=== PATIENT | female | born 1940 | race Caucasian/White ===

== ENCOUNTER 2016-07-24 12:02 | Day surgery (SDC) | payer MEDICARE, OTHER ==
[2016-07-24] MEDS: Polymyxin B/Trimethoprim 10 ML Bottle EYERT SCH ×4 (13:48→15:21)
[2016-07-24] MEDS: Brimonidine 0.2% Ophth Soln 5 ML Bottle EYERT SCH ×3 (13:54→15:21)
--- NOTE | 2016-07-24 13:57 | PCM.PREANE ---
Preanesthetic Assessment - Anesthesia/Transfusion/Family Hx Anesthesia History: Prior Anesthesia Without Reaction Family History of Anesthesia Reaction: No Transfusion History: No Prior Transfusion(s) - Review of Systems General: No Symptoms Pulmonary: No Symptoms Cardiovascular: No Symptoms Gastrointestinal: No symptoms Neurological: No Symptoms Other: Reports: None - Physical Assessment NPO Status Date: 07/23/16 NPO Status Time: 21:00 Pulse: 66 O2 Sat by Pulse Oximetry: 100 Respiratory Rate: 16 Blood Pressure: 147/67 Temperature: 36.5 C Vital Signs: Last Vital Signs Temp 36.5 C 07/24/16 13:35 Pulse 66 07/24/16 13:35 Resp 16 07/24/16 13:35 BP 147/67 H 07/24/16 13:35 Pulse Ox 100 07/24/16 13:35 Height: 1.57 m Weight: 102.058 kg ASA Class: 2 Mental Status: Alert & Oriented x3 Dentition: Reports: [place](s) Thyro-Mental Finger Breadths: 3 Mouth Opening Finger Breadths: 3 ROM/Head Extension: Full Lungs: Clear to auscultation, Normal respiratory effort Cardiovascular: Regular Rate, Regular Rhythm, No Murmurs - Allergies Allergies/Adverse Reactions: Allergies Allergy/AdvReac Type Severity Reaction Status Date / Time CHAGO Inhibitors Allergy Unknown Cannot Verified 12/12/15 11:18 Remember amoxicillin Allergy Unknown rash/difficulty Verified 12/12/15 11:18 breathing clonidine Allergy Unknown Cannot Verified 12/12/15 11:18 Remember losartan [Losartan] Allergy Unknown Cannot Verified 12/12/15 11:18 Remember naproxen Allergy Unknown swollen Verified 12/12/15 11:18 and red meperidine HCl [From Demerol] AdvReac Disorientat Verified 12/12/15 11:18 ion - Blood Blood Available: No Product(s) Available: None - Anesthesia Plan Beta Morales: Metoprolol Med Last Dose Date: 07/23/16 Med Last Dose Time: 19:30 - Acknowledgements Anesthesia Type Planned: MAC Pt an Appropriate Candidate for the Planned Anesthesia: Yes Alternatives and Risks of Anesthesia Discussed w Pt/Guardian: Yes Pt/Guardian Understands and Agrees with Anesthesia Plan: Yes PreAnesthesia Questionnaire HEENT History: Reports: Cataract, Impaired Vision Other HEENT History: wears glasses Cardiovascular History: Reports: High Cholesterol, Hypertension Respiratory History: Reports: Other (See Below) Other Respiratory History: upper respiratory infection Gastrointestinal History: Reports: Chronic Constipation, Diverticulosis, Gastritis, GERD, Hemorrhoids, Other (See Below) Other Gastrointestinal History: diverticulitis, duodenitis, bowel impaction Genitourinary History: Reports: Renal Calculus, Other (See Below) Other Genitourinary History: kidney stones, left neprectomy 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: 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 Musculoskeletal History: Reports: Gout, Osteoarthritis Psychiatric History: Reports: Other (See Below) Other Psychiatric History: claustrophobia Endocrine/Metabolic History: Reports: Other (See Below) Other Endocrine/Metabolic History: thyroid cyst - Past Surgical History HEENT Surgical History: Reports: Adenoidectomy, Tonsillectomy, Other (See Below) Other HEENT Surgeries/Procedures: eye surgery GI Surgical History: Reports: Appendectomy, Colonoscopy, EGD, Polypectomy Female Surgical History: Reports: Nephrectomy, Other (See Below) Other Female Surgeries/Procedures: cystoscopy Musculoskeletal Surgical History: Reports: Arthroscopic Knee, Knee Replacement, Other (See Below) Other Musculoskeletal Surgeries/Procedures:: Left total knee, Left knee arthroscopy, foot surgery - SUBSTANCE USE Smoking Status *Q: Never Smoker Second Hand Smoke Exposure: No Days Per Week of Alcohol Use: 0 Number of Drinks Per Day: 0 Total Drinks Per Week: 0 Recreational Drug Use History: No - HOME MEDS Home Medications: Home Meds Allopurinol 1 tab PO QAM 05/14/14 [History] Famotidine [Pepcid AC] 1 tab PO DAILY PRN 05/14/14 [History] Gluc HCl/Csa/La Hy/Hyalur Ac [Glucosamine Chondroitin] 1 cap PO BID 05/14/14 [ History] Hydrochlorothiazide 1 tab PO QAM 05/14/14 [History] Metoprolol Succinate 1 tab PO QPM 05/14/14 [History] Simvastatin 1 tab PO QPM 05/14/14 [History] Acetaminophen [Tylenol Extra Strength] 1 - 2 tab PO Q6HR PRN 11/15/15 [History] Cranberry 400 mg PO DAILY 11/15/15 [History] Methylcellulose [Citrucel] 500 mg PO DAILY 11/15/15 [History] Calcium Carbonate [Tums] 500 mg PO ASDIRECTED PRN 12/12/15 [History] - CURRENT (IN HOUSE) MEDS Current Meds: Current Medications Brimonidine Tartrate (Alphagan 0.2% Ophth Soln) 0 ml EYERT ASDIRECTED ROBYN Stop: 07/24/16 18:00 Cefuroxime Sodium (Zinacef) 0 mg EYERT ASDIRECTED ROBYN Stop: 07/24/16 18:00 Lidocaine HCl (Xylocaine-Mpf 1%) 1 ml INJECT ASDIRECTED ROBYN Stop: 07/24/16 18:00 Phenylephrine HCl (Jose-Synephrine 2.5% Ophth Soln) 0 ml EYERT ASDIRECTED ROBYN Stop: 07/24/16 18:00 Pilocarpine HCl (Pilocar 4% Ophth Soln) 0 ml EYERT ASDIRECTED RBOYN Stop: 07/24/16 18:00 Polymyxin/Trimethoprim Sulfate (Polytrim Ophth Soln) 0 ml EYERT ASDIRECTED ROBYN Stop: 07/24/16 18:00 Last Admin: 07/24/16 13:48 Dose: 1 drop Tetracaine (Pontocaine 0.5% Oph Drops) 0 ml EYERT ASDIRECTED ROBYN Stop: 07/24/16 18:00 Tropicamide (Mydriacyl 1% Oph Soln) 0 ml EYERT ASDIRECTED ROBYN Stop: 07/24/16 18:00
[2016-07-24] MEDS: Phenylephrine 2.5% Ophth Soln 2 ML Bot EYERT SCH ×6 (14:00→15:01)
[2016-07-24] MEDS: Lidocaine 1% PF 2 ML SDV INJECT SCH ×2 (14:32→15:10)
[2016-07-24] MEDS: Tetracaine 0.5% 2 ML Bottle EYERT SCH ×3 (14:32→15:10)
[2016-07-24] MEDS: Pilocarpine 4% Ophth Soln 15 ML Bot EYERT SCH ×2 (14:33→15:21)
[2016-07-24] MEDS: Cefuroxime 10 MG/ML SYRINGE EYERT SCH ×2 (14:33→15:20)
--- NOTE | 2016-07-24 15:23 | PCM48HPAN ---
Post Anesthesia Note - EVALUATION WITHIN 48HRS OF ANESTHETIC Vital Signs in Normal Range: Yes Patient Participated in Evaluation: Yes Respiratory Function Stable: Yes Airway Patent: Yes Cardiovascular Function Stable: Yes Hydration Status Stable: Yes Pain Control Satisfactory: Yes Nausea and Vomiting Control Satisfactory: Yes Mental Status Recovered: Yes
[2016-07-24 15:34] VITALS: BP 153/59
== END 2016-07-24 15:31 | disposition home or self-care (01) ==
LOC: JD.SDS 12:02
PROVIDERS: ATTEND Ophthalmology
DX: H25.811 Combined forms of age-related cataract, right eye (principal); H35.371 Puckering of macula, right eye; H02.834 Dermatochalasis of left upper eyelid; H02.831 Dermatochalasis of right upper eyelid; M19.90 Unspecified osteoarthritis, unspecified site; E78.00 Pure hypercholesterolemia, unspecified; I10 Essential (primary) hypertension; K59.09 Other constipation; M10.9 Gout, unspecified; K21.9 Gastro-esophageal reflux disease without esophagitis; Z87.442 Personal history of urinary calculi; Z90.49 Acquired absence of other specified parts of digestive tract; Z98.890 Other specified postprocedural states; Z98.42 Cataract extraction status, left eye; Z96.1 Presence of intraocular lens; Z82.49 Family history of ischemic heart disease and other diseases of the circulatory system; Z79.899 Other long term (current) drug therapy; Z88.0 Allergy status to penicillin; Z88.8 Allergy status to other drugs, medicaments and biological substances; Z90.5 Acquired absence of kidney
CPT/HCPCS: 66984; A9270; C1780; J0697

== ENCOUNTER 2017-11-15 09:03 | Day surgery (SDC) | payer MEDICARE, OTHER ==
[~2017-11-15 09:03] MED LIST: Dexamethasone 4 MG/ML SDV ONE; Lactated Ringers 1,000 ML IV SCH; Lidocaine 1% 4 ML ONE; Lidocaine 1%/Sod Bicarbonate in NS 8.4% 1 ML Syringe IDERM PRN; Ondansetron 4 MG/2 ML SDV ONE; Propofol 200 MG/20 ML SDV ONE; Rocuronium 50 MG/5 ML Vial ONE; Sodium Chloride 0.9% 10 ML Syringe FLUSH PRN; fentaNYL 100 MCG/2 ML SDV ONE
--- NOTE | 2017-11-15 09:44 | PCM.PREANE ---
Preanesthetic Assessment - Anesthesia/Transfusion/Family Hx Anesthesia History: Prior Anesthesia Without Reaction Family History of Anesthesia Reaction: No Transfusion History: No Prior Transfusion(s) Intubation History: Unknown - Review of Systems General: No Symptoms Pulmonary: No Symptoms Cardiovascular: No Symptoms (History of HTN) Gastrointestinal: No Symptoms (GERD), Nausea Neurological: Numbness (constant numbnes bilateral feet) Other: Reports: None (History of right nephrectomy/elevated BUN and Creatinine noted), Thyroid Problems (History of multiple thyroid nodules) - Physical Assessment NPO Status Date: 11/14/17 NPO Status Time: 20:30 Pulse: 66 O2 Sat by Pulse Oximetry: 98 Respiratory Rate: 19 Blood Pressure: 142/63 Temperature: 37.1 C Height: 1.57 m Weight: 101 kg ASA Class: 3 Mental Status: Alert & Oriented x3 Airway Class: Mallampati = 2 Dentition: Reports: Normal Dentition, Caries Thyro-Mental Finger Breadths: 3 Mouth Opening Finger Breadths: 3 ROM/Head Extension: Full Lungs: Clear to Auscultation, Normal Respiratory Effort Cardiovascular: Regular Rate, Regular Rhythm, No Murmurs - Lab Values: Laboratory Last Values Urine Color Yellow (Yellow) 11/15/17 09:10 Urine Appearance Cloudy (Clear) H 11/15/17 09:10 Urine pH 5.5 (5.0-8.0) 11/15/17 09:10 Ur Specific [place] 1.025 (1.005-1.030) 11/15/17 09:10 Urine Protein Negative (Negative) 11/15/17 09:10 Urine Glucose (UA) Negative (Negative) 11/15/17 09:10 Urine Ketones Negative (Negative) 11/15/17 09:10 Urine Occult Blood Trace-lysed (Negative) H 11/15/17 09:10 Urine Nitrite Negative (Negative) 11/15/17 09:10 Urine Bilirubin Negative (Negative) 11/15/17 09:10 Urine Urobilinogen 0.2 (0.2-1.0) 11/15/17 09:10 Ur Leukocyte Esterase 1+ (Negative) H 11/15/17 09:10 All lab values reviewed and noted and within acceptable ranges to proceed with scheduled procedure. - Imaging/EKG Impressions: EKG: SR rate=66 Echocardiogram: (2013) EF= 60-65% - Allergies Allergies/Adverse Reactions: Allergies Allergy/AdvReac Type Severity Reaction Status Date / Time CHAGO Inhibitors Allergy Unknown Disorientat Verified 11/14/17 10:23 ion amoxicillin Allergy Unknown rash/difficulty Verified 11/14/17 10:23 breathing clonidine Allergy Unknown Cannot Verified 11/14/17 10:23 Remember losartan [Losartan] Allergy Unknown Cough Verified 11/14/17 10:23 naproxen Allergy Unknown swollen Verified 11/14/17 10:23 and red meperidine HCl [From Demerol] AdvReac Disorientat Verified 11/14/17 10:23 ion - Anesthesia Plan Pre-Op Medication Ordered: Beta Morales Beta Morales: Metoprolol Med Last Dose Date: 11/14/17 Med Last Dose Time: 19:00 - Acknowledgements Anesthesia Type Planned: General Anesthesia Pt an Appropriate Candidate for the Planned Anesthesia: Yes Alternatives and Risks of Anesthesia Discussed w Pt/Guardian: Yes Pt/Guardian Understands and Agrees with Anesthesia Plan: Yes PreAnesthesia Questionnaire HEENT History: Reports: Cataract, Impaired Vision Other HEENT History: wears glasses Cardiovascular History: Reports: High Cholesterol, Hypertension Respiratory History: Reports: Other (See Below) Other Respiratory History: upper respiratory infection Gastrointestinal History: Reports: Chronic Constipation, Colon Polyp, Diverticulosis, Gastritis, GERD, Hemorrhoids, Other (See Below) Other Gastrointestinal History: diverticulitis, duodenitis, bowel impaction Genitourinary History: Reports: Renal Calculus, Other (See Below) Other Genitourinary History: kidney stones, left neprectomy 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: 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, Other (See Below) Other OB/BYN History: pelvic pain, post menopausal bleeding Musculoskeletal History: Reports: Arthritis, Gout, Osteoarthritis Neurological History: Reports: Other (See Below) Other Neuro History: feet numbness Psychiatric History: Reports: Anxiety, Other (See Below) Other Psychiatric History: claustrophobia Endocrine/Metabolic History: Reports: Other (See Below) Other Endocrine/Metabolic History: thyroid cyst Hematologic History: Reports: None Immunologic History: Reports: None Oncologic (Cancer) History: Reports: None Dermatologic History: Reports: Other (See Below) Other Dermatologic History: foot callous - Past Surgical History Head Surgeries/Procedures: Reports: None HEENT Surgical History: Reports: Adenoidectomy, Cataract Surgery, Tonsillectomy , Other (See Below) Other HEENT Surgeries/Procedures: eye surgery Cardiovascular Surgical History: Reports: None Respiratory Surgical History: Reports: None GI Surgical History: Reports: Appendectomy, Colonoscopy, EGD, Polypectomy Female Surgical History: Reports: Nephrectomy, Other (See Below) Other Female Surgeries/Procedures: cystoscopy Musculoskeletal Surgical History: Reports: Arthroscopic Knee, Knee Replacement, Other (See Below) Other Musculoskeletal Surgeries/Procedures:: Left total knee, Left knee arthroscopy, foot surgery Oncologic Surgical History: Reports: None - SUBSTANCE USE Smoking Status *Q: Never Smoker Recreational Drug Use History: No - HOME MEDS Home Medications: Home Meds Allopurinol 50 mg PO QAM 05/14/14 [History] Simvastatin 20 mg PO QPM 05/14/14 [History] Famotidine [Pepcid AC] 10 mg PO DAILY PRN 11/14/17 [History] Metoprolol Succinate 100 mg PO QPM 11/14/17 [History] hydroCHLOROthiazide [Hydrochlorothiazide] 25 mg PO DAILY 11/14/17 [History] - CURRENT (IN HOUSE) MEDS Current Meds: Current Medications Lactated Ringer's (Ringers, Lactated) 1,000 mls @ 125 mls/hr IV ASDIRECTED ROBYN Stop: 11/15/17 23:00 Lidocaine/Sodium Bicarbonate (Buffered Lidocaine 1% In Ns 8.4%) 0.25 ml IDERM ONETIME PRN PRN Reason: Prior to IV Start Stop: 11/15/17 18:00 Sodium Chloride (Saline Flush) 10 ml FLUSH ASDIRECTED PRN PRN Reason: Keep Vein Open Stop: 11/15/17 18:00 Discontinued Medications Dexamethasone (Dexamethasone) Confirm Administered Dose 4 mg .ROUTE .STK-MED ONE Stop: 11/15/17 07:19 Fentanyl (Sublimaze) Confirm Administered Dose 100 mcg .ROUTE .STK-MED ONE Stop: 11/15/17 07:19 Lidocaine HCl (Xylocaine-Mpf 1%) Confirm Administered Dose 4 mls @ as directed .ROUTE .STK-MED ONE Stop: 11/15/17 07:19 Ondansetron HCl (Zofran) Confirm Administered Dose 4 mg .ROUTE .STK-MED ONE Stop: 11/15/17 07:19 Propofol (Diprivan 20 Ml) Confirm Administered Dose 200 mg .ROUTE .STK-MED ONE Stop: 09/07/18 07:19 Propofol (Diprivan 20 Ml) Confirm Administered Dose 200 mg .ROUTE .STK-MED ONE Stop: 11/15/17 08:36 Rocuronium [place] (Zemuron) Confirm Administered Dose 50 mg .ROUTE .STK-MED ONE Stop: 11/15/17 08:48
[2017-11-15] MEDS ORDERED: Succinylcholine/Normal Saline 100 MG/5 ML Syringe ONE (10:09)
[2017-11-15] MEDS ORDERED: Lactated Ringers 1,000 ML ONE (10:38)
[2017-11-15] MEDS ORDERED: diphenhydrAMINE 50 MG/ML SDV IVPUSH PRN (10:47)
[2017-11-15] MEDS ORDERED: Ondansetron 4 MG/2 ML SDV IVPUSH PRN (10:47)
[2017-11-15] MEDS ORDERED: HYDROmorphone 0.5 MG/0.5 ML Syringe IVPUSH PRN (10:47)
[2017-11-15] MEDS ORDERED: ePHEDrine 50 MG/ML SDV IVPUSH PRN (10:47)
[2017-11-15] MEDS ORDERED: Phenylephrine 1 MG in Sodium Chloride 0.9% 10 ML IV SCH (11:00)
--- NOTE | 2017-11-15 11:21 | PCM.POSTAN ---
POST ANESTHESIA ASSESSMENT - MENTAL STATUS Mental Status: Alert - VITAL SIGNS Pulse Rate: 73 SaO2: 94 Resp Rate: 15 Blood Pressure: 144/76 Temperature: 36.8 C - RESPIRATORY Respiratory Status: Respiratory Rate WNL, Airway Patent, O2 Saturation Stable, Supplemental Oxygen - CARDIOVASCULAR CV Status: Pulse Rate WNL, Blood Pressure Stable - GASTROINTESTINAL GI Status: No Symptoms - POST OP HYDRATION Hydration Status: Adequate & Stable
--- NOTE | 2017-11-15 11:38 | PCM.OPNOTE ---
- General Post-Op/Procedure Note Date of Surgery/Procedure: 11/15/17 Operative Procedure(s): Hysteroscopy with dilation and curettage and endometrial polypectomy Findings: Overall normal-appearing cervix with cystocele and rectocele and uterine prolapse noted, normal endometrial lining with broad-based endometrial polyp from the uterine fundus with base near the 4 to 5 o'clock position. Overall normal-appearing tubal ostia bilaterally. Pre Op Diagnosis: Postmenopausal bleeding and endometrial polyp Post-Op Diagnosis: Same Anesthesia Technique: General ET Tube Primary Surgeon: Miller Meadows Anesthesia Provider: Margarette Eckert Nurses Aide: Sarah Harmon (PA student) Reason Nurses Aide Was Necessary: Medical education Pathology: 1. Endometrial polyp 2. Endometrial curettings Fluid Replacement, Intraop: 700 Output, Urine Amount: 0 (Voided prior to procedure) EBL in mLs: 15 Complications: None Condition: Good Free Text/Narrative:: Procedure in Detail: Patient was seen in the preop area and counseled on risks, benefits and alternatives of the procedure and consents were reviewed prior to going back to the OR. She was taken back to OR #2 and given general anesthesia with endotracheal tube that was placed without difficulty. She was placed in dorsal lithotomy position using Yellofin stirrups. She was prepped and draped in a normal sterile fashion. A weighted speculum was placed in the vagina and the cervix was visualized. The anterior lip of the cervix was grasped with a single toothed tenaculum. The cervix was serially dilated to a 15 [place] Trejo dilator. A 5 mm hysteroscope was inserted into the uterine cavity and advanced to the uterine fundus. The ostia were noted to be present bilaterally. The uterine cavity was noted to have normal-appearing postmenopausal endometrial lining with a broad-based endometrial polyp from the uterine fundus. The hysteroscope was removed and a polyp forceps was used to remove the majority of the polyp. The hysteroscope was reinserted and the cavity was inspected and the majority of the polyp was removed. The endometrial polyp was sent for pathology. The hysteroscope was removed and a sharp curette was used to circumferentially curette the entirety of the uterine cavity where good cri was present in all directions. The curettings were sent for pathology. The procedure was complete at this time and the tenaculum was removed from the cervix and good hemostasis was obtained from the tenaculum sites with use of silver nitrate stick. All instruments were removed from the vagina. All needle and sponge counts were correct x 2. The patient was awoken and taken back to the recovery room in stable condition. The patient will be discharged home when she is ambulating, tolerating PO, pain is well controlled with PO medications and she is voiding normally. She will follow up with Dr. Meadows in the clinic within the next 2-3 weeks. She was given strict precautions to call the medical office or go to the Emergency Department if she is having severe vaginal bleeding of more than 1 pad per hour for three hours, uncontrollable pain, nausea, vomiting, or if she is having a fever greater than 100.4 F.
[2017-11-15 13:34] VITALS: BP 127/66
== END 2017-11-15 13:00 | disposition home or self-care (01) ==
LOC: JD.SDS 09:03
PROVIDERS: ATTEND Obstetrics & Gynecology
DX: N95.0 Postmenopausal bleeding (principal); N84.0 Polyp of corpus uteri; N81.4 Uterovaginal prolapse, unspecified; M19.90 Unspecified osteoarthritis, unspecified site; M10.9 Gout, unspecified; K21.9 Gastro-esophageal reflux disease without esophagitis; I10 Essential (primary) hypertension; E78.00 Pure hypercholesterolemia, unspecified; E78.5 Hyperlipidemia, unspecified; E04.2 Nontoxic multinodular goiter; F41.9 Anxiety disorder, unspecified; Z79.899 Other long term (current) drug therapy; Z88.1 Allergy status to other antibiotic agents; Z88.6 Allergy status to analgesic agent; Z88.8 Allergy status to other drugs, medicaments and biological substances
CPT/HCPCS: 58558; 81001; 87086; J0330; J1100; J2405; J2704; J3010; J7120; 00952; J2001

== ENCOUNTER 2018-12-08 14:09 | Emergency (ER) | payer MEDICARE, OTHER ==
[2018-12-08 14:55] VITALS: BP 138/64; PULSE 64
[2018-12-08] MEDS ORDERED: predniSONE 20 MG Tab PO ONE (15:16)
[2018-12-08] MEDS ORDERED: Acetaminophen/HYDROcodone 325-5 MG Tab PO ONE (15:16)
--- NOTE | 2018-12-08 16:20 | EDM.PDOC ---
ED HPI GENERAL MEDICAL PROBLEM - General Chief Complaint: Lower Extremity Injury/Pain Stated Complaint: LT LEG PAIN Time Seen by Provider: 12/08/18 15:02 Source of Information: Reports: Patient, RN Notes Reviewed - History of Present Illness INITIAL COMMENTS - FREE TEXT/NARRATIVE: 78-year-old female comes in with left lower leg pain. Dealing with this for about 8-10 days. She has had 3 chiropractor treatments and after the treatment today the pain seemed to be worse. She states the pain starts in her left buttock area and left low back and at times radiates completely down her foot. The pain is worse when sitting, standing or walking. Lying relatively flat she can find positions of comfort. She does have history of peripheral neuropathy so does have chronic numbness and loss of feeling bottom of her feet but no other numbness or tingling. No focal weakness. She is not diabetic. After the chiropractor treatment today going home in the car the pain became so severe they decided to come here to the ED. No recent fall or injury. Left Leg Pain Score (Numeric/FACES): 10 - Related Data Allergies Allergy/AdvReac Type Severity Reaction Status Date / Time CHAGO Inhibitors Allergy Unknown Disorientat Verified 12/08/18 14:55 ion amoxicillin Allergy Unknown rash/difficulty Verified 12/08/18 14:55 breathing clonidine Allergy Unknown Cannot Verified 12/08/18 14:55 Remember losartan [Losartan] Allergy Unknown Cough Verified 12/08/18 14:55 naproxen Allergy Unknown swollen Verified 12/08/18 14:55 and red meperidine HCl [From Demerol] AdvReac Disorientat Verified 12/08/18 14:55 ion Home Meds: Home Meds Allopurinol 50 mg PO QAM 05/14/14 [History] Simvastatin 20 mg PO QPM 05/14/14 [History] Famotidine [Pepcid AC] 10 mg PO DAILY PRN 11/14/17 [History] Metoprolol Succinate 100 mg PO QPM 11/14/17 [History] hydroCHLOROthiazide [Hydrochlorothiazide] 25 mg PO DAILY 11/14/17 [History] Acetaminophen [Tylenol] 325 - 650 mg PO Q6H PRN #60 tablet 11/15/17 [Rx] Acetaminophen/HYDROcodone [Byron 325-5 MG] 1 - 2 tab PO Q6H #8 tablet 11/15/17 [ Rx] Acetaminophen/HYDROcodone [Byron 325-5 MG] 1 tab PO Q6H PRN #14 tablet 12/08/18 [Rx] Past Medical History HEENT History: Reports: Cataract, Impaired Vision Other HEENT History: wears glasses Cardiovascular History: Reports: High Cholesterol, Hypertension Respiratory History: Reports: Other (See Below) Other Respiratory History: upper respiratory infection Gastrointestinal History: Reports: Chronic Constipation, Colon Polyp, Diverticulosis, Gastritis, GERD, Hemorrhoids, Other (See Below) Other Gastrointestinal History: diverticulitis, duodenitis, bowel impaction Genitourinary History: Reports: Renal Calculus, Other (See Below) Other Genitourinary History: kidney stones, left neprectomy 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: 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, Other (See Below) Other ASSISTANT PUBLIC DEFENDER History: pelvic pain, post menopausal bleeding Musculoskeletal History: Reports: Arthritis, Gout, Osteoarthritis Neurological History: Reports: Other (See Below) Other Neuro History: feet numbness Psychiatric History: Reports: Anxiety, Other (See Below) Other Psychiatric History: claustrophobia Endocrine/Metabolic History: Reports: Other (See Below) Other Endocrine/Metabolic History: thyroid cyst Hematologic History: Reports: None Immunologic History: Reports: None Oncologic (Cancer) History: Reports: None Dermatologic History: Reports: Other (See Below) Other Dermatologic History: foot callous - Past Surgical History Head Surgeries/Procedures: Reports: None HEENT Surgical History: Reports: Adenoidectomy, Cataract Surgery, Tonsillectomy , Other (See Below) Other HEENT Surgeries/Procedures: eye surgery Cardiovascular Surgical History: Reports: None Respiratory Surgical History: Reports: None GI Surgical History: Reports: Appendectomy, Colonoscopy, EGD, Polypectomy Female Surgical History: Reports: Nephrectomy, Other (See Below) Other Female Surgeries/Procedures: cystoscopy Musculoskeletal Surgical History: Reports: Arthroscopic Knee, Knee Replacement, Other (See Below) Other Musculoskeletal Surgeries/Procedures:: Left total knee, Left knee arthroscopy, foot surgery Oncologic Surgical History: Reports: None Social & Family History - Tobacco Use Smoking Status *Q: Never Smoker - Caffeine Use Caffeine Use: Reports: None Review of Systems - Review of Systems Review Of Systems: See Below Constitutional: Denies: Chills, Fever Mouth/Throat: Reports: No Symptoms Respiratory: Denies: Shortness of Breath Cardiovascular: Denies: Chest Pain GI/Abdominal: Denies: Abdominal Pain Musculoskeletal: Reports: Back Pain (L low back), Leg Pain. Denies: Neck Pain, Shoulder Pain Skin: Reports: No Symptoms. Denies: Rash Neurological: Reports: Numbness (plantar aspect both feet chronically). Denies : Dizziness, Headache, Trouble Speaking, Weakness ED EXAM, GENERAL - Physical Exam Exam: See Below General Appearance: Alert, Mild Distress Eye Exam: Bilateral Eye: PERRL Throat/Mouth: Normal Inspection Head: Atraumatic Neck: Supple, Full Range of Motion Respiratory/Chest: No Respiratory Distress, Lungs Clear, Normal Breath Sounds Cardiovascular: Regular Rate, Rhythm GI/Abdominal: Soft, Non-Tender Extremities: No: Pedal Edema, Joint Swelling, Leg Pain, Increased Warmth, Redness Neurological: Alert, Oriented, No Motor/Sensory Deficits, Other (Mild pain with st leg raising LLE) Skin Exam: Warm, Dry, Normal Color, No Rash Course - Vital Signs Last Recorded V/S: Last Vital Signs Temp 97.8 F 12/08/18 14:52 Pulse 64 12/08/18 14:52 Resp 16 12/08/18 14:52 BP 138/64 12/08/18 14:52 Pulse Ox 98 12/08/18 14:52 - Orders/Labs/Meds Meds: Medications Discontinued Medications Generic Name Dose Route Start Last Admin Trade Name Freq PRN Reason Stop Dose Admin Hydrocodone Bitart/Acetaminophen 1 tab 12/08/18 15:16 12/08/18 15:56 Byron 325-5 Mg PO 12/08/18 15:17 1 tab ONETIME ONE Administration Prednisone 40 mg 12/08/18 15:16 12/08/18 15:56 Prednisone PO 12/08/18 15:17 40 mg ONETIME ONE Administration - Re-Assessments/Exams Free Text/Narrative Re-Assessment/Exam: 12/10/18 20:04 sx strongly compatable with sciatica, have written an order for physical therapy , will do a short course of steroids, discharge instr. as documented. Departure - Departure Time of Disposition: 16:16 Disposition: Home, Self-Care 01 Condition: Fair Clinical Impression: Back pain with sciatica - Discharge Information Prescriptions: Acetaminophen/HYDROcodone [Byron 325-5 MG] 1 tab PO Q6H PRN #14 tablet PRN Reason: Pain Instructions: Sciatica Referrals: Mary Taylor SPOKE MAKER [Primary Care Provider] - Forms: ED Department Discharge Additional Instructions: Prednisone 40 mg every morning for the next 4 days, Tylenol 3-4 times daily for mild to moderate discomfort or hydrocodone if needed for more severe pain, also alternate ice and heat to the left low back as needed. Follow-up regular medical provider in about one week for recheck, physical therapy recommended for further evaluation and treatment until symptoms resolving as expected.
== END 2018-12-08 16:32 | disposition home or self-care (01) ==
LOC: JD.ED 14:09
DX: M54.42 Lumbago with sciatica, left side (principal); I10 Essential (primary) hypertension; E78.00 Pure hypercholesterolemia, unspecified; Z88.1 Allergy status to other antibiotic agents; Z88.8 Allergy status to other drugs, medicaments and biological substances; Z79.899 Other long term (current) drug therapy; Z98.890 Other specified postprocedural states; Z90.49 Acquired absence of other specified parts of digestive tract; Z90.5 Acquired absence of kidney
CPT/HCPCS: 99283; A9270

== ENCOUNTER 2018-12-11 13:19 | Emergency (ER) | payer MEDICARE, OTHER ==
[2018-12-11 13:35] VITALS: BP 140/51; PULSE 70
--- NOTE | 2018-12-11 13:41 | EDM.PDOC ---
ED HPI GENERAL MEDICAL PROBLEM - General Chief Complaint: Lower Extremity Injury/Pain Stated Complaint: LEFT LEG PAIN Time Seen by Provider: 12/11/18 13:36 Source of Information: Reports: Patient, RN Notes Reviewed History Limitations: Reports: No Limitations - History of Present Illness INITIAL COMMENTS - FREE TEXT/NARRATIVE: Patient is a 78-year-old female who presents to the ED for the evaluation of left lower leg pain. Patient notes she was recently evaluated in the ER, and treated for sciatica. She states that the back pain has gotten better however she still having some lingering left lower allen pain. She notes that the pain is present only when she is bearing weight on the extremity, and is much better when she is lying down. The patient notes she's had this pain present for about 1-2 weeks. She notes that she was going to the chiropractor further back pain, and has not been there since after the sciatica treatment with Dr. Almanza provided out of the ER. She notes that the pain is an 8 out of 10 at rest, and a 10 out of 10 with any sort of weightbearing. The patient denies the pain radiating into her toes, however she states that it does travel up the left lateral side of her leg. When asked to point where the pain is the patient points to the left medial lower allen just superior to the ankle joint. She notes that the pain is sharp stabbing in nature. The patient notes that she does have a history of neuropathy, she states this is not due to diabetes, she is not on any medications for this neuropathy and they are investigating this in [place]. She states that they're unsure as to what is causing her neuropathy. The patient noted that she has had a very small amount of swelling to the medial lower allen, but has been using ice and this seems to have resolved it. Left Lower Leg Pain Score (Numeric/FACES): 8 - Related Data Allergies Allergy/AdvReac Type Severity Reaction Status Date / Time CHAGO Inhibitors Allergy Unknown Disorientat Verified 12/11/18 13:35 ion amoxicillin Allergy Unknown rash/difficulty Verified 12/11/18 13:35 breathing clonidine Allergy Unknown Cannot Verified 12/11/18 13:35 Remember losartan [Losartan] Allergy Unknown Cough Verified 12/11/18 13:35 naproxen Allergy Unknown swollen Verified 12/11/18 13:35 and red meperidine HCl [From Demerol] AdvReac Disorientat Verified 12/11/18 13:35 ion Home Meds: Home Meds Allopurinol 50 mg PO QAM 05/14/14 [History] Simvastatin 20 mg PO QPM 05/14/14 [History] Famotidine [Pepcid AC] 10 mg PO DAILY PRN 11/14/17 [History] Metoprolol Succinate 100 mg PO QPM 11/14/17 [History] hydroCHLOROthiazide [Hydrochlorothiazide] 25 mg PO DAILY 11/14/17 [History] Acetaminophen [Tylenol] 325 - 650 mg PO Q6H PRN #60 tablet 11/15/17 [Rx] Acetaminophen/HYDROcodone [[place] 325-5 MG] 1 tab PO Q6H PRN #14 tablet 12/08/18 [Rx] Acetaminophen/oxyCODONE [Percocet 325-5 MG] 1 each PO Q6H PRN #12 tab 12/11/18 [ Rx] predniSONE [Prednisone] 0 mg PO DAILY 12/11/18 [History] Past Medical History HEENT History: Reports: Cataract, Impaired Vision Other HEENT History: wears glasses Cardiovascular History: Reports: High Cholesterol, Hypertension Respiratory History: Reports: Other (See Below) Other Respiratory History: upper respiratory infection Gastrointestinal History: Reports: Chronic Constipation, Colon Polyp, Diverticulosis, Gastritis, GERD, Hemorrhoids, Other (See Below) Other Gastrointestinal History: diverticulitis, duodenitis, bowel impaction Genitourinary History: Reports: Renal Calculus, Other (See Below) Other Genitourinary History: kidney stones, left neprectomy 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 TOOL MAKER 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: Reports: 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, Other (See Below) Other PRESS TOOL MAKER History: pelvic pain, post menopausal bleeding Musculoskeletal History: Reports: Arthritis, Gout, Osteoarthritis Neurological History: Reports: Other (See Below) Other Neuro History: feet numbness Psychiatric History: Reports: Anxiety, Other (See Below) Other Psychiatric History: claustrophobia Endocrine/Metabolic History: Reports: Other (See Below) Other Endocrine/Metabolic History: thyroid cyst Hematologic History: Reports: None Immunologic History: Reports: None Oncologic (Cancer) History: Reports: None Dermatologic History: Reports: Other (See Below) Other Dermatologic History: foot callous - Past Surgical History Head Surgeries/Procedures: Reports: None HEENT Surgical History: Reports: Adenoidectomy, Cataract Surgery, Tonsillectomy , Other (See Below) Other HEENT Surgeries/Procedures: eye surgery Cardiovascular Surgical History: Reports: None Respiratory Surgical History: Reports: None GI Surgical History: Reports: Appendectomy, Colonoscopy, EGD, Polypectomy Female Surgical History: Reports: Nephrectomy, Other (See Below) Other Female Surgeries/Procedures: cystoscopy Musculoskeletal Surgical History: Reports: Arthroscopic Knee, Knee Replacement, Other (See Below) Other Musculoskeletal Surgeries/Procedures:: Left total knee, Left knee arthroscopy, foot surgery Oncologic Surgical History: Reports: None Social & Family History - Tobacco Use Smoking Status *Q: Never Smoker - Caffeine Use Caffeine Use: Reports: Coffee - Recreational Drug Use Recreational Drug Use: No Review of Systems - Review of Systems Review Of Systems: See Below Constitutional: Reports: No Symptoms Eyes: Reports: No Symptoms Ears: Reports: No Symptoms Nose: Reports: No Symptoms Mouth/Throat: Reports: No Symptoms Respiratory: Denies: Shortness of Breath Cardiovascular: Denies: Chest Pain GI/Abdominal: Reports: No Symptoms Genitourinary: Reports: No Symptoms Musculoskeletal: Reports: Leg Pain (L lower allen) Skin: Denies: Bruising Neurological: Denies: Numbness, Tingling Psychiatric: Reports: No Symptoms ED EXAM, GENERAL - Physical Exam Exam: See Below Exam Limited By: No Limitations General Appearance: Alert, WD/WN, No Apparent Distress Respiratory/Chest: No Respiratory Distress, Lungs Clear, Normal Breath Sounds, No Accessory Muscle Use, Chest Non-Tender Cardiovascular: Normal Peripheral Pulses, Regular Rate, Rhythm, No Murmur Peripheral Pulses: 3+: Dorsalis Pedis (L), Dorsalis Pedis (R) Extremities: Normal Inspection, Normal Range of Motion, Non-Tender, No Pedal Edema, Normal Capillary Refill. No: Joint Swelling, Geoff's Sign, Leg Pain, Increased Warmth, Mottled, Pallor, Redness Neurological: Alert, Oriented, Normal Cognition, No Motor/Sensory Deficits Psychiatric: Normal Affect, Normal Mood Skin Exam: Warm, Dry, Intact, Normal Color, No Rash Course - Vital Signs Last Recorded V/S: Last Vital Signs Temp 97.6 F 12/11/18 13:31 Pulse 70 12/11/18 13:31 Resp 18 12/11/18 13:31 BP 140/51 L 12/11/18 13:31 Pulse Ox 99 12/11/18 13:31 - Orders/Labs/Meds Meds: Medications Discontinued Medications Generic Name Dose Route Start Last Admin Trade Name Noemi PRN Reason Stop Dose Admin Hydromorphone HCl 0.5 mg 12/11/18 15:04 12/11/18 15:15 Dilaudid IM 12/11/18 15:05 0.5 mg ONETIME ONE Administration - Re-Assessments/Exams Free Text/Narrative Re-Assessment/Exam: 12/11/18 14:04 Patient presents to the ED for evaluation of left lower allen pain. Quite unsure as to what the etiology of her pain might be, she states that is worsened when she posterior pressure on the leg, with weightbearing. I did offer the patient and x-ray, and she accepted this time, and was wondering about an ultrasound of the area to rule out a blood clot, due to the nonspecific nature of her pain, and it not being related to sciatica in nature, I did agree to do the ultrasound at today's visit to see if we can find a source of what might be causing her pain. It may just end up being peripheral neuropathy. 12/11/18 15:05 Patient's tib-fib x-ray is done, and appreciates no acute abnormality. Patient does have a knee prosthesis on the left knee. Ankle mortise also looks symmetric. The patient notified the nurse that she was in more pain, and was requesting something for pain, I did order 0.5 mg IM Dilaudid for this. 12/11/18 17:10 Patient's ultrasound is done, and does not demonstrate any sort of a DVT in the left lower extremity. There is an area that has an appearance of an a large tendon with inflammation, which would be consistent with tendinitis at this time. Which would explain why she is having pain in this area. Patient was most recently placed on prednisone on 12/08/[address] Almanza for sciatica. I will recommend that she take 400mg Ibuprofen q6h PRN for pain management for 5 days along with other general recommendations. Departure - Departure Time of Disposition: 17:26 Disposition: Home, Self-Care 01 Condition: Fair Clinical Impression: Tendinitis - Discharge Information *PRESCRIPTION DRUG MONITORING PROGRAM REVIEWED*: No *COPY OF PRESCRIPTION DRUG MONITORING REPORT IN PATIENT JARVIS: No Referrals: Mary Taylor NP [Primary Care Provider] - Forms: ED Department Discharge Additional Instructions: You have been evaluated in the ED for your left lower leg pain. Your x-ray demonstrated no acute fracture or bony ability. Your ultrasound of your left lower leg demonstrated that you have tendinitis present in the lower extremity. There was no DVT appreciated on the ultrasound exam. Please use ice/heat as tolerated to the affected area. Please try to elevate the affected area to relieve swelling. You may take Tylenol 500 mg or ibuprofen 400mg q6 hrs for pain relief. Please do so until you have a tolerable level of pain with activity. Do not exceed 4000mg Tylenol or 2400mg ibuprofen in a 24 hour time period. Please try only to use ibuprofen for 5 days, as tendinitis is in inflammatory change, and the ibuprofen would likely provide to the best benefit from pain relief. You were given some tablets of oxycodone/acetaminophen for pain not relieved by ibuprofen alone. Recommend that you take the previous tablets of hydrocodone received by Dr. Almanza back to the pharmacy and have them destroyed if they're not providing good pain relief. Please return to ED if your symptoms should change or worsen.
--- NOTE | 2018-12-11 14:52 | CR ---
Left tibia and fibula: Two views of the left tibia and fibula were obtained. Comparison: No previous tibia or fibula exam, previous knee exam of 06/22/13 is available. Knee prosthesis is seen. Ankle mortise is symmetric. No fracture or other bony abnormality is appreciated. Impression: 1. Knee prosthesis. No additional abnormality is appreciated on left tibia and fibula study. Diagnostic code #1
[2018-12-11] MEDS ORDERED: HYDROmorphone 0.5 MG/0.5 ML Syringe IM ONE (15:04)
--- NOTE | 2018-12-11 16:57 | US ---
Left lower extremity deep venous ultrasound: Duplex and color flow imaging was obtained of the left common femoral, superficial femoral, popliteal, posterior tibial and peroneal veins. Right common femoral vein is also evaluated. Findings: Normal phasic flow, augmentation and compression is seen. There is a linear hypoechoic area containing echogenic striations within the anterior lower extremity superior to the ankle. This has the appearance of an enlarged tendon with inflammation. Impression: 1. Possible inflamed tendon as noted above. Please correlate if this matches patient's clinical symptoms. 2. No evidence of deep venous thrombosis within left lower extremity right common femoral vein. Diagnostic code #3
== END 2018-12-11 18:00 | disposition home or self-care (01) ==
LOC: JD.ED 13:19
DX: M77.9 Enthesopathy, unspecified (principal); H26.9 Unspecified cataract; E78.00 Pure hypercholesterolemia, unspecified; I10 Essential (primary) hypertension; K21.9 Gastro-esophageal reflux disease without esophagitis; M10.9 Gout, unspecified; Z88.8 Allergy status to other drugs, medicaments and biological substances; Z88.0 Allergy status to penicillin; Z88.6 Allergy status to analgesic agent; Z88.5 Allergy status to narcotic agent; Z79.899 Other long term (current) drug therapy; Z96.652 Presence of left artificial knee joint
CPT/HCPCS: 73590; 93971; 96372; 99284; J1170; 99283

== ENCOUNTER 2020-06-01 13:36 | Emergency (ER) | payer MEDICARE, OTHER ==
--- NOTE | 2020-06-01 14:01 | EDM.PDOC ---
ED HPI GENERAL MEDICAL PROBLEM - General Chief Complaint: Chest Pain Stated Complaint: CHEST PAIN Time Seen by Provider: 06/01/20 13:45 Source of Information: Reports: Patient History Limitations: Reports: No Limitations - History of Present Illness INITIAL COMMENTS - FREE TEXT/NARRATIVE: The patient presents with chest pain. 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 She also had some chest pain with it. This only lasted about a minute. She feels fine now. She had no headache, fever, chills, cough, chest pain, shortness of breath, abdominal pain, nausea or vomiting. She has no history of heart disease. She does not smoke. She has a history of hypertension and hypercholesterolemia. Onset: Sudden Duration: Hour(s): Location: Reports: Chest Quality: Reports: Sharp Severity: Mild Improves with: Reports: None Worsens with: Reports: None Associated Symptoms: Reports: Chest Pain. Denies: Cough, Fever/Chills, Headaches, Nausea/Vomiting, Shortness of Breath - Related Data Allergies Allergy/AdvReac Type Severity Reaction Status Date / Time amoxicillin Allergy Unknown rash/difficulty Verified 06/01/20 13:57 breathing clonidine Allergy Unknown Cannot Verified 06/01/20 13:57 Remember naproxen Allergy Unknown swollen Verified 06/01/20 13:57 and red CHAGO Inhibitors AdvReac Unknown Disorientat Verified 06/01/20 14:20 ion losartan [Losartan] AdvReac Unknown Cough Verified 06/01/20 14:20 meperidine HCl [From Demerol] AdvReac Disorientat Verified 06/01/20 13:57 ion Home Meds: Home Meds Simvastatin 20 mg PO QPM 05/14/14 [History] allopurinoL [Allopurinol] 50 mg PO QAM 05/14/14 [History] Famotidine [Pepcid AC] 10 mg PO DAILY PRN 11/14/17 [History] Metoprolol Succinate 100 mg PO QPM 11/14/17 [History] hydroCHLOROthiazide [Hydrochlorothiazide] 25 mg PO DAILY 11/14/17 [History] Acetaminophen [Tylenol] 325 - 650 mg PO Q6H PRN #60 tablet 11/15/17 [Rx] Past Medical History HEENT History: Reports: Cataract, Impaired Vision Other HEENT History: wears glasses Cardiovascular History: Reports: High Cholesterol, Hypertension Respiratory History: Reports: Other (See Below) Other Respiratory History: upper respiratory infection Gastrointestinal History: Reports: Chronic Constipation, Colon Polyp, Diverticu losis, Gastritis, GERD, Hemorrhoids, Other (See Below) Other Gastrointestinal History: diverticulitis, duodenitis, bowel impaction Genitourinary History: Reports: Renal Calculus, Other (See Below) Other Genitourinary History: kidney stones, left neprectomy 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: Reports: 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, Other (See Below) Other 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: pelvic pain, post menopausal bleeding Musculoskeletal History: Reports: Arthritis, Gout, Osteoarthritis Neurological History: Reports: Other (See Below) Other Neuro History: feet numbness Psychiatric History: Reports: Anxiety, Other (See Below) Other Psychiatric History: claustrophobia Endocrine/Metabolic History: Reports: Other (See Below) Other Endocrine/Metabolic History: thyroid cyst Hematologic History: Reports: None Immunologic History: Reports: None Oncologic (Cancer) History: Reports: None Dermatologic History: Reports: Other (See Below) Other Dermatologic History: foot callous - Past Surgical History Head Surgeries/Procedures: Reports: None HEENT Surgical History: Reports: Adenoidectomy, Cataract Surgery, Tonsillectomy, Other (See Below) Other HEENT Surgeries/Procedures: eye surgery Cardiovascular Surgical History: Reports: None Respiratory Surgical History: Reports: None GI Surgical History: Reports: Appendectomy, Colonoscopy, EGD, Polypectomy Female Surgical History: Reports: Nephrectomy, Other (See Below) Other Female Surgeries/Procedures: cystoscopy Musculoskeletal Surgical History: Reports: Arthroscopic Knee, Knee Replacement, Other (See Below) Other Musculoskeletal Surgeries/Procedures:: Left total knee, Left knee arthroscopy, foot surgery Oncologic Surgical History: Reports: None Social & Family History - Caffeine Use Caffeine Use: Reports: Coffee ED ROS GENERAL - Review of Systems Review Of Systems: See Below Constitutional: Reports: No Symptoms HEENT: Reports: No Symptoms Respiratory: Reports: No Symptoms Cardiovascular: Reports: Chest Pain Endocrine: Reports: No Symptoms GI/Abdominal: Reports: No Symptoms : Reports: No Symptoms Musculoskeletal: Reports: No Symptoms Skin: Reports: No Symptoms ED EXAM, GENERAL - Physical Exam Exam: See Below Exam Limited By: No Limitations General Appearance: Alert, No Apparent Distress Ears: Normal External Exam Nose: Normal Inspection Head: Atraumatic, Normocephalic Neck: Normal Inspection Respiratory/Chest: No Respiratory Distress, Lungs Clear, Normal Breath Sounds Cardiovascular: Regular Rate, Rhythm, No Edema, No Murmur GI/Abdominal: Soft, Non-Tender, No Organomegaly, No Mass Back Exam: Normal Inspection Extremities: Normal Inspection Course - Vital Signs Last Recorded V/S: Last Vital Signs Temp 97.0 F 06/01/20 13:44 Pulse 61 06/01/20 13:44 Resp 22 H 06/01/20 13:44 BP 162/72 H 06/01/20 13:44 Pulse Ox 97 06/01/20 13:44 - Orders/Labs/Meds Orders: Active Orders 24 hr Category Date Time Status Cardiac Monitoring [RC] . DIRECTED Care 06/01/20 14:00 Active EKG 12 Lead [EKG Documentation Completion] [RC] STAT Care 06/01/20 13:55 Active Peripheral IV Care [RC] . DIRECTED Care 06/01/20 14:00 Active Sodium Chloride 0.9% [Saline Flush] Med 06/01/20 13:59 Active 10 ml FLUSH ASDIRECTED PRN Peripheral IV Insertion Adult [OM.PC] Stat Oth 06/01/20 13:59 Ordered Medication Orders Sodium Chloride (Sodium Chloride 0.9% 10 Ml Syringe) 10 ml FLUSH ASDIRECTED PRN PRN Reason: Keep Vein Open Last Admin: 06/01/20 15:24 Dose: 10 ml Documented by: CHRIS Labs: Laboratory Tests 06/01/20 06/01/20 Range/Units 13:45 13:45 WBC 10.15 H (3.98-10.04) K/mm3 RBC 4.62 (3.98-5.22) M/mm3 Hgb 13.4 (11.2-15.7) gm/dl Hct 43.2 (34.1-44.9) % MCV 93.5 (79.4-94.8) fl MCH 29.0 (25.6-32.2) pg MCHC 31.0 L (32.2-35.5) g/dl RDW Std Deviation 43.5 (36.4-46.3) fL Plt Count 300 (182-369) K/mm3 MPV 11.8 (9.4-12.3) fl Neut % (Auto) 57.8 (34.0-71.1) % Lymph % (Auto) 29.2 (19.3-51.7) % Grady % (Auto) 10.3 (4.7-12.5) % Eos % (Auto) 2.0 (0.7-5.8) Baso % (Auto) 0.3 (0.1-1.2) % Neut # (Auto) 5.87 (1.56-6.13) K/mm3 Lymph # (Auto) 2.96 (1.18-3.74) K/mm3 Grady # (Auto) 1.05 H (0.24-0.36) K/mm3 Eos # (Auto) 0.20 (0.04-0.36) K/mm3 Baso # (Auto) 0.03 (0.01-0.08) K/mm3 Sodium 141 (136-145) mEq/L Potassium 4.4 (3.5-5.1) mEq/L Chloride 102 (98-107) mEq/L Carbon Dioxide 29 (21-32) mEq/L Anion Gap 14.4 (5-15) BUN 27 H (7-18) mg/dL Creatinine 1.3 H (0.55-1.02) mg/dL Est Cr Clr Drug Dosing 26.91 mL/min Estimated GFR (MDRD) 40 (>60) mL/min BUN/Creatinine Ratio 20.8 H (14-18) Glucose 91 (83-115) mg/dL Calcium 9.5 (8.5-10.1) mg/dL Total Bilirubin 0.7 (0.2-1.0) mg/dL AST 23 (15-37) U/L ALT 20 (14-59) U/L Alkaline Phosphatase 125 H (46-116) U/L Troponin I < 0.017 (0.00-0.056) ng/mL Total Protein 8.1 (6.4-8.2) g/dl Albumin 3.9 (3.4-5.0) g/dl Globulin 4.2 gm/dL Albumin/Globulin Ratio 0.9 L (1-2) Meds: Medications Generic Name Dose Route Start Last Admin Trade Name Freq PRN Reason Stop Dose Admin Sodium Chloride 10 ml 06/01/20 13:59 06/01/20 15:24 Sodium Chloride 0.9% 10 Ml Syringe FLUSH 10 ml ASDIRECTED PRN Administration Keep Vein Open Discontinued Medications Generic Name Dose Route Start Last Admin Trade Name Noemi PRN Reason Stop Dose Admin Aspirin 324 mg 06/01/20 13:59 06/01/20 14:31 Aspirin 81 Mg Tab.Chew PO 06/01/20 14:00 Not Given ONETIME ONE - Re-Assessments/Exams Free Text/Narrative Re-Assessment/Exam: 06/01/20 15:18 I ordered an IV saline lock, EKG, CXR, and labs. She had some aspirin before arrival. 06/01/20 15:31 Her EKG shows a NSR with no acute changes. Her CXR looks good. Her WBC was slightly elevated at 10.15. Her creatinine was slightly elevated at 1.3. Her alk phos was elevated at 125. Her troponin is negative. She still feels good. I do not feel this is a heart attack. I will discharge her home and follow up with Mary Taylor. Departure - Departure Time of Disposition: 15:35 Disposition: Home, Self-Care 01 Condition: Good Clinical Impression: Atypical chest pain Referrals: Mary Taylor, PROJECT CONSULTANT [Primary Care Provider] - 1 Week Forms: ED Department Discharge Additional Instructions: Take your medications as prescribed. Follow up with Mary Taylor within a week. Please return if you are worse. Sepsis Event Note (ED) - Evaluation Sepsis Screening Result: No Definite Risk - Focused Exam Vital Signs: Vital Signs Temp Pulse Resp BP Pulse Ox 06/01/20 13:44 97.0 F 61 22 H 162/72 H 97 - My Orders Last 24 Hours: My Active Orders 06/01/20 13:55 EKG 12 Lead [EKG Documentation Completion] [RC] STAT 06/01/20 13:59 Sodium Chloride 0.9% [Saline Flush] 10 ml FLUSH ASDIRECTED PRN Peripheral IV Insertion Adult [OM.PC] Stat 06/01/20 14:00 Cardiac Monitoring [RC] . DIRECTED Peripheral IV Care [RC] . DIRECTED - Assessment/Plan Last 24 Hours: My Active Orders 06/01/20 13:55 EKG 12 Lead [EKG Documentation Completion] [RC] STAT 06/01/20 13:59 Sodium Chloride 0.9% [Saline Flush] 10 ml FLUSH ASDIRECTED PRN Peripheral IV Insertion Adult [OM.PC] Stat 06/01/20 14:00 Cardiac Monitoring [RC] . DIRECTED Peripheral IV Care [RC] . DIRECTED
--- NOTE | 2020-06-01 14:26 | CR ---
Chest: Portable view of the chest was obtained. Comparison: No prior chest imaging is available. Heart size and mediastinum are within normal limits for portable technique. Lungs are clear with no acute parenchymal change. No acute osseous abnormality is appreciated. Impression: 1. Nothing acute is seen on portable chest x-ray. Diagnostic code #1
[2020-06-01] MEDS: Aspirin 81 MG Tab.Chew PO ONE (14:31)
[2020-06-01] MEDS: Sodium Chloride 0.9% 10 ML Syringe FLUSH PRN (15:24)
[2020-06-01 15:59] VITALS: BP 141/49; PULSE 55
== END 2020-06-01 15:45 | disposition home or self-care (01) ==
LOC: JD.ED 13:36
DX: R07.89 Other chest pain (principal); D72.829 Elevated white blood cell count, unspecified; E78.00 Pure hypercholesterolemia, unspecified; I10 Essential (primary) hypertension; K21.9 Gastro-esophageal reflux disease without esophagitis; Z88.0 Allergy status to penicillin; Z88.8 Allergy status to other drugs, medicaments and biological substances; Z88.6 Allergy status to analgesic agent; Z79.899 Other long term (current) drug therapy
CPT/HCPCS: 36415; 71045; 71045-26; 80053; 84484; 85025; 93005; 99284; 99285-25

== ENCOUNTER 2020-07-19 07:35 | Day surgery (SDC) | payer MEDICARE, OTHER ==
[~2020-07-19 07:35] MED LIST changes: -Dexamethasone 4 MG/ML SDV ONE; -Lidocaine 1% 4 ML ONE; -Ondansetron 4 MG/2 ML SDV ONE; -Propofol 200 MG/20 ML SDV ONE; -Rocuronium 50 MG/5 ML Vial ONE; -fentaNYL 100 MCG/2 ML SDV ONE
[2020-07-19] MEDS ORDERED: fentaNYL 100 MCG/2 ML SDV ONE (08:15)
[2020-07-19] MEDS ORDERED: Propofol 200 MG/20 ML SDV ONE (08:15)
[2020-07-19] MEDS ORDERED: Lidocaine 1% 4 ML ONE (08:15)
[2020-07-19] MEDS ORDERED: Midazolam 1 MG/ML 2 ML SDV ONE (08:15)
--- NOTE | 2020-07-19 08:16 | PCM.PREANE ---
Preanesthetic Assessment - Procedure Proposed Procedure: Diagnostic EGD Diagnostic Colonoscopy - Anesthesia/Transfusion/Family Hx Anesthesia History: Prior Anesthesia Without Reaction Family History of Anesthesia Reaction: No Transfusion History: No Prior Transfusion(s) Intubation History: Unknown - Review of Systems General: No Symptoms Pulmonary: No Symptoms Cardiovascular: No Symptoms Gastrointestinal: Other (GERD) Neurological: Numbness (Bilateral Feet), Tingling (Bilateral Feet) Other: Reports: None - Physical Assessment NPO Status Date: 07/19/20 NPO Status Time: 04:00 Weight: 91.9 kg ASA Class: 3 Mental Status: Alert & Oriented x3 Airway Class: Mallampati = 2 Dentition: Reports: Normal Dentition (Bottom two teeth loose. Can wiggle with her finger. Explained bite block and risk to these teeth.) Thyro-Mental Finger Breadths: 2 Mouth Opening Finger Breadths: 3 ROM/Head Extension: Full Lungs: Clear to Auscultation, Normal Respiratory Effort Cardiovascular: Regular Rate, Regular Rhythm - Imaging/EKG Impressions: SR at 64 bpm - Allergies Allergies/Adverse Reactions: Allergies Allergy/AdvReac Type Severity Reaction Status Date / Time amoxicillin Allergy Unknown rash/difficulty Verified 07/18/20 12:31 breathing clonidine Allergy Unknown Cannot Verified 07/18/20 12:31 Remember naproxen Allergy Unknown swollen Verified 07/18/20 12:31 and red CHAGO Inhibitors AdvReac Unknown Disorientat Verified 07/18/20 12:31 ion losartan [Losartan] AdvReac Unknown Cough Verified 07/18/20 12:31 meperidine HCl [From Demerol] AdvReac Disorientat Verified 07/18/20 12:31 ion - Blood Blood Available: No - Anesthesia Plan Pre-Op Medication Ordered: None Beta Morales: Metoprolol Med Last Dose Date: 07/18/20 Med Last Dose Time: 20:00 - Acknowledgements Anesthesia Type Planned: MAC Pt an Appropriate Candidate for the Planned Anesthesia: Yes Alternatives and Risks of Anesthesia Discussed w Pt/Guardian: Yes Pt/Guardian Understands and Agrees with Anesthesia Plan: Yes PreAnesthesia Questionnaire HEENT History: Reports: Cataract, Impaired Vision Other HEENT History: wears glasses Cardiovascular History: Reports: High Cholesterol, Hypertension Respiratory History: Reports: Other (See Below) Other Respiratory History: upper respiratory infection Gastrointestinal History: Reports: Chronic Constipation, Colon Polyp, Diverticulosis, Gastritis, GERD, Hemorrhoids, Other (See Below) Other Gastrointestinal History: diverticulitis, duodenitis, bowel impaction Genitourinary History: Reports: Renal Calculus, Other (See Below) Other Genitourinary History: kidney stones, left neprectomy 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: Reports: 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, Other (See Below) Other OB/BYN History: pelvic pain, post menopausal bleeding Musculoskeletal History: Reports: Arthritis, Gout, Osteoarthritis, Other (See Below) Other Musculoskeletal History: Herniated disc - sciatica pain Neurological History: Reports: Other (See Below) Other Neuro History: feet numbness Psychiatric History: Reports: Anxiety, Other (See Below) Other Psychiatric History: claustrophobia Endocrine/Metabolic History: Reports: Hypothyroidism, Other (See Below) Other Endocrine/Metabolic History: thyroid cyst Hematologic History: Reports: None Immunologic History: Reports: None Oncologic (Cancer) History: Reports: None Dermatologic History: Reports: Other (See Below) Other Dermatologic History: foot callous - Infectious Disease History Infectious Disease History: Reports: None - Past Surgical History Head Surgeries/Procedures: Reports: None HEENT Surgical History: Reports: Adenoidectomy, Cataract Surgery, Tonsillectomy, Other (See Below) Other HEENT Surgeries/Procedures: eye surgery Cardiovascular Surgical History: Reports: None Respiratory Surgical History: Reports: None GI Surgical History: Reports: Appendectomy, Colonoscopy, EGD, Polypectomy Female Surgical History: Reports: Nephrectomy, Other (See Below) Other Female Surgeries/Procedures: cystoscopy Endocrine Surgical History: Reports: None Neurological Surgical History: Reports: None Musculoskeletal Surgical History: Reports: Arthroscopic Knee, Knee Replacement, Other (See Below) Other Musculoskeletal Surgeries/Procedures:: Left total knee, Left knee arthroscopy, foot surgery Oncologic Surgical History: Reports: None - SUBSTANCE USE Tobacco Use Status *Q: Never Tobacco User Recreational Drug Use History: No - HOME MEDS Home Medications: Home Meds Simvastatin 20 mg PO QPM 05/14/14 [History] allopurinoL [Allopurinol] 100 mg PO QAM 05/14/14 [History] Famotidine [Pepcid AC] 10 mg PO DAILY PRN 11/14/17 [History] Metoprolol Succinate 100 mg PO DAILY 11/14/17 [History] hydroCHLOROthiazide [Hydrochlorothiazide] 25 mg PO DAILY 11/14/17 [History] Escitalopram Oxalate [Lexapro] 10 mg PO DAILY 07/18/20 [History] - CURRENT (IN HOUSE) MEDS Current Meds: Current Medications Lactated Ringer's (Ringers, Lactated) 1,000 mls @ 125 mls/hr IV ASDIRECTED ROBYN Stop: 07/19/20 23:00 Lidocaine/Sodium Bicarbonate (Lidocaine 1%/Sod Bicarbonate In Ns 8.4% 1 Ml Syringe) 0.25 ml IDERM ONETIME PRN PRN Reason: Prior to IV Start Stop: 07/19/20 18:00 Sodium Chloride (Sodium Chloride 0.9% 10 Ml Syringe) 10 ml FLUSH ASDIRECTED PRN PRN Reason: Keep Vein Open Stop: 07/19/20 18:00
--- NOTE | 2020-07-19 09:11 | PCM.PRNOTE ---
- Free Text/Narrative Note: Date: 07/19/2020 Procedure: diagnostic upper endoscopy, screening colonoscopy History: medically refractory reflux, history of colon polyps with last scope done three years ago Endoscopist: Baldev Hodge MD Findings: very good prep. Appendiceal orifice seen, with polypoid tissue at the orifice. Diverticulosis with what seemed like minor stricture related to diverticulitis, although mucosa appear blue-mcfadden consistent with old submucosal tattoo ink. Detailed Report: Patient was taken to the endoscopy suite and placed in left lateral decubitus position. Timeout was performed and monitored anesthesia care was initiated. A bite-block was placed and the endoscope was inserted into the mouth. The scope was advanced to the second portion of the duodenum with ease. Duodenal mucosa appeared normal. A biopsy with cold forceps was obtained to sample duodenal mucosa. The scope was withdrawn into the stomach. The pylorus appeared normal. Biopsy of gastric antral mucosa was obtained with forceps. The gastric mucosa appeared normal, there was no ulceration or inflammation noted. The incisura appeared normal. On retroflexion, there was no evidence of hiatal hernia. The scope was withdrawn into the distal esophagus. The Z-line appeared normal. A biopsy of distal esophageal mucosa was obtained with cold forceps. The remainder of the esophagus appeared normal as the scope was withdrawn. Air was suctioned from the stomach and esophagus as the scope was withdrawn. Next, attention was turned to colonoscopy. The anus appeared normal. Digital rectal exam was unremarkable. The colonoscope was inserted and advanced all the way to the cecum. The appendiceal orifice was visualized, and at the orifice was some polypoid tissue that was biopsied with cold forceps. Scope was slowly withdrawn and mucosal surfaces carefully inspected. The prep was good. There was extensive sigmoid diverticulosis. In the sigmoid colon, there was an area of minor stricturing that was a little bit challenging to traverse with the scope. The mucosa appeared bluish-mcfadden, similar in appearance to what would be expected with old submucosal tattoo ink. Although there was no evidence of gross malignant change at the mucosa, several mucosal biopsies in this area were obtained. On retroflexion in the rectum anal papilla were visualized but no other abnormalities were appreciated. Air was suctioned from the distal colon and rectum prior to withdrawal of the scope. The patient tolerated the procedure well.
--- NOTE | 2020-07-19 09:13 | PCM48HPAN ---
Post Anesthesia Note - EVALUATION WITHIN 48HRS OF ANESTHETIC Vital Signs in Normal Range: Yes Patient Participated in Evaluation: Yes Respiratory Function Stable: Yes Airway Patent: Yes Cardiovascular Function Stable: Yes Hydration Status Stable: Yes Pain Control Satisfactory: Yes Nausea and Vomiting Control Satisfactory: Yes Mental Status Recovered: Yes Vital Signs: Last Vital Signs Temp 97.9 F 07/19/20 07:40 Pulse 65 07/19/20 07:40 Resp 20 07/19/20 07:40 BP 133/84 07/19/20 07:40 Pulse Ox 98 07/19/20 07:40 0906 115/61 61 15 97.7 91%
[2020-07-19 09:42] VITALS: BP 120/65; PULSE 58
== END 2020-07-19 09:52 | disposition home or self-care (01) ==
LOC: JD.SDS 07:35
PROVIDERS: ATTEND Surgery
DX: Z12.11 Encounter for screening for malignant neoplasm of colon (principal); K63.5 Polyp of colon; K57.30 Diverticulosis of large intestine without perforation or abscess without bleeding; K21.9 Gastro-esophageal reflux disease without esophagitis; I10 Essential (primary) hypertension; E78.00 Pure hypercholesterolemia, unspecified; E78.5 Hyperlipidemia, unspecified; E03.9 Hypothyroidism, unspecified; Z88.1 Allergy status to other antibiotic agents; Z88.8 Allergy status to other drugs, medicaments and biological substances; Z79.899 Other long term (current) drug therapy; Z86.010 Personal history of colon polyps; Z80.0 Family history of malignant neoplasm of digestive organs; Z98.890 Other specified postprocedural states
CPT/HCPCS: 43239; 45380; J2250; J2704; J3010; J7120; 00813; 88305; 99100